=== PATIENT | male | born 1955 | race Caucasian/White ===

== ENCOUNTER 2021-01-08 06:09 | Inpatient (IN) | payer OTHER ==
[~2021-01-08] VITALS: Ht 185.4 cm; Wt 110.0 kg
[~2021-01-08 06:09] MED LIST: ASPIRIN EC81 MG PO; CARTIA XT120 MG PO; CELEXA10 MG PO; CITRATE OF MAG296 ML PO; COQ-10100 MG PO; HCTZ25 MG PO; HYDROCODONE-APA1 TAB PO; K-DUR20 MEQ PO; PROTONIX 40MG T40 MG PO; VALTREX *OUT OF1 GM PO; VITAMIN D31 ML PO
[2021-01-08 06:35] LABS: BASOPHIL 0.6 % (0-2); HCT 47.1 % (42.0-52.0); HGB 15.4 g/dl (13.2-18.0); LYMPHOCYTE 15.7 % (15-48); MCH 30.7 pg (25.0-31.0); MCHC 32.7 g/dL (32.0-36.0); MCV 93.8 fL (78.0-100.0); MONOCYTE 10.1 % (0-12); MPV 9.8 fL (6.0-9.5); NEUTROPHIL 71.3 % (41-80); NRBC 0; PLT 180 K/uL (150-400); RBC 5.02 M/uL (4.70-6.00); RDW 12.7 % (11.5-14.0); WBC 8.6 K/uL (4.0-10.5)
[2021-01-08 06:41] LABS: INR 1.04 (0.9-1.2); PTT 33.7 SECONDS (24.4-34.7)
[2021-01-08 06:43] LABS: D-DIMER 0.3 ug/mLFEU (0.00-0.41)
[2021-01-08 07:40] LABS: ALBUMIN 3.6 g/dL (3.4-5.0); BILIRUBIN - TOTAL 0.7 mg/dL (0.2-1.0); BUN/CREAT RATIO (CALC) 24.1 RATIO; CREATININE 0.83 mg/dL (0.67-1.17); FT4 (FREE T4) 1.1 ng/dL (0.76-1.46); GLOBULIN (CALCULATION) 3.5 g/dL; POTASSIUM 3.3 mmol/L (3.5-5.1); TOTAL PROTEIN 7.1 g/dL (6.4-8.2)
[2021-01-08] MEDS ORDERED: CARDIZEM CD120 MG PO (10:45)
[2021-01-08] MEDS ORDERED: HCTZ12.5 MG PO (10:45)
[2021-01-08] MEDS ORDERED: ZOLOFT100 MG PO (10:46)
[2021-01-08] MEDS ORDERED: EXELON1.5 MG PO (10:47)
[2021-01-08] MEDS ORDERED: REVATIO 20MG TA20 MG PO (10:51)
[2021-01-09 06:29] LABS: BASOPHIL 0.6 % (0-2); EOSINOPHIL 3.5 % (0-7); HCT 43.4 % (42.0-52.0); LYMPHOCYTE 22.8 % (15-48); MCH 30.7 pg (25.0-31.0); MCHC 32.3 g/dL (32.0-36.0); MCV 95.2 fL (78.0-100.0); MONOCYTE 9.6 % (0-12); MPV 10.2 fL (6.0-9.5); NRBC 0; PLT 177 K/uL (150-400); RBC 4.56 M/uL (4.70-6.00); RDW 13.1 % (11.5-14.0); WBC 6.6 K/uL (4.0-10.5)
[2021-01-09 07:09] LABS: BUN/CREAT RATIO (CALC) 22.4 RATIO; CREATININE 0.76 mg/dL (0.67-1.17); MAGNESIUM 2.2 mg/dL (1.8-2.4); POTASSIUM 4.1 mmol/L (3.5-5.1)
[2021-01-09] MEDS ORDERED: ELIQUIS5 MG PO (13:33)
[2021-01-09] MEDS ORDERED: BETAPACE80 MG PO (13:33)
--- NOTE | 2021-01-09 16:00 | NUR ---
01/09/21 Patient is discharged home. No needs were anticipated.
== END 2021-01-09 14:25 | disposition home or self-care (01) | DRG 310 ==
LOC: FER 06:09 → FTCU 09:03
PROVIDERS: Emergency Medicine Emergency Medical Services; ADMIT Internal Medicine
DX: I48.0 Paroxysmal atrial fibrillation (principal); Z20.822 Contact with and (suspected) exposure to COVID-19; I11.9 Hypertensive heart disease without heart failure; F03.90 Unspecified dementia, unspecified severity, without behavioral disturbance, psychotic disturbance, mood disturbance, and anxiety; R68.84 Jaw pain; E66.9 Obesity, unspecified; Z68.31 Body mass index [BMI] 31.0-31.9, adult; Z98.890 Other specified postprocedural states; Z79.899 Other long term (current) drug therapy; Z87.891 Personal history of nicotine dependence; Z80.0 Family history of malignant neoplasm of digestive organs; Z90.89 Acquired absence of other organs; Z88.6 Allergy status to analgesic agent; Z88.8 Allergy status to other drugs, medicaments and biological substances; Z80.52 Family history of malignant neoplasm of bladder; Z80.3 Family history of malignant neoplasm of breast
CPT/HCPCS: 36415; 71045; 80048; 80053; 83735; 84439; 84443; 84484; 85025; 85379; 85610; 85730; 93005; J1650; J2270; J7040; U0002

== ENCOUNTER 2021-04-02 09:59 | Emergency (ER) | payer OTHER ==
[~2021-04-02 09:59] MED LIST changes: +BETAPACE80 MG PO; +CARDIZEM CD120 MG PO; +ELIQUIS5 MG PO; +EXELON1.5 MG PO; +HCTZ12.5 MG PO; +REVATIO 20MG TA20 MG PO; +ZOLOFT100 MG PO
[2021-04-02 10:54] LABS: BASOPHIL 0.6 % (0-2); EOSINOPHIL 2.6 % (0-7); HCT 48.5 % (42.0-52.0); HGB 16.2 g/dl (13.2-18.0); LYMPHOCYTE 16.8 % (15-48); MCH 30.6 pg (25.0-31.0); MCHC 33.4 g/dL (32.0-36.0); MCV 91.5 fL (78.0-100.0); MONOCYTE 8.6 % (0-12); MPV 9.7 fL (6.0-9.5); NEUTROPHIL 71.1 % (41-80); NRBC 0; PLT 201 K/uL (150-400); RDW 13.8 % (11.5-14.0); WBC 7.8 K/uL (4.0-10.5)
[2021-04-02 11:15] LABS: ALBUMIN 3.7 g/dL (3.4-5.0); BILIRUBIN - TOTAL 0.5 mg/dL (0.2-1.0); BUN/CREAT RATIO (CALC) 21.2 RATIO; CREATININE 0.8 mg/dL (0.67-1.17); GLOBULIN (CALCULATION) 3.2 g/dL; POTASSIUM 3.7 mmol/L (3.5-5.1); TOTAL PROTEIN 6.9 g/dL (6.4-8.2)
== END 2021-04-02 11:35 | disposition home or self-care (01) ==
LOC: FER 09:59
PROVIDERS: Emergency Medicine
DX: I48.0 Paroxysmal atrial fibrillation (principal); F03.90 Unspecified dementia, unspecified severity, without behavioral disturbance, psychotic disturbance, mood disturbance, and anxiety; Z88.1 Allergy status to other antibiotic agents; Z88.6 Allergy status to analgesic agent; Z88.8 Allergy status to other drugs, medicaments and biological substances; Z79.01 Long term (current) use of anticoagulants; Z79.899 Other long term (current) drug therapy
CPT/HCPCS: 36415; 80053; 84484; 85025; 93005